=== PATIENT | male | born 1985 | race Two or more races ===

== ENCOUNTER 2020-08-17 06:11 | Inpatient (IN) | payer MEDICAID, OTHER ==
[~2020-08-17] VITALS: Ht 185.4 cm; Wt 97.8 kg
[2020-08-17] VITALS (9 sets, daily range): BP systolic 107–135; BP diastolic 57–81
[2020-08-17 07:17] LABS: Hematocrit 42.5 % (41.0-53.0); Hemoglobin 14.4 g/dL (13.5-17.5); Mean Corpuscular Hemoglobin 29.9 pg (28.0-32.0); Mean Corpuscular Hgb Conc. 33.8 g/dL (32.0-36.0); Mean Corpuscular Volume 88.6 fL (80.0-100.0); Platelet Count (auto) 424 10^3/uL (140-450); Red Cell Distribution Width 13.6 % (11.8-14.3); White Blood Cell 27.8 10^3/uL (4.4-10.8)
[2020-08-17 07:20] LABS: Basophils % (manual) 0 (0.0-2.0); Blast Cells 0; Eosinophils % (manual) 0 (0-7); Metamyelocytes % 0; Myelocytes % 0; Promyelocytes % 0; Reactive Lymphocytes 0
[2020-08-17] MEDS ORDERED: LORazepam 2MG/ML-1ML VIAL IV ONE (07:30)
[2020-08-17] MEDS ORDERED: SODIUM CHLORIDE 0.9% 1,000 ML IV ONE ×3 (07:30→13:00)
[2020-08-17 07:31] LABS: INR 1.18 (0.9-1.15); Partial Thromboplastin Time 30.3 sec (23.0-31.2)
[2020-08-17 07:32] LABS: Alanine Aminotransferase 25 U/L (16-61); Albumin 2.5 g/dL (3.4-5.0); Anion Gap 11 (5-15); Aspartate Aminotransferase 17 U/L (15-37); BUN/Creatinine Ratio 10.9; Blood Urea Nitrogen 11 mg/dL (7-18); Calcium 8.4 mg/dL (8.5-10.1); Carbon Dioxide 22 mmol/L (21-32); Chloride 94 mmol/L (98-107); GFR African American 108 mL/min; GFR Non-African American 89 mL/min; Glucose 115 mg/dL (74-106); Sodium 127 mmol/L (136-145)
[2020-08-17 07:37] LABS: Alkaline Phosphatase 113 U/L (45-117); Bilirubin, Total 0.7 mg/dL (0.2-1.0); Total Protein 7.8 g/dL (6.4-8.2)
[2020-08-17] MEDS ORDERED: CLINDAMYCIN 900MG IV 50 ML IV ONE (07:45)
[2020-08-17] MEDS ORDERED: cefTRIAXone 1GM/50ML D5W 50 ML IV ONE (07:45)
[2020-08-17] MEDS ORDERED: HYDROmorphone HCL 2 MG/ML VL IV ONE (10:00)
[2020-08-17] MEDS ORDERED: ONDANSETRON HCL 4 MG/2 ML VIAL IV ONE (10:00)
[2020-08-17 12:06] LABS: Band Neutrophils % (manual) 6; Lymphocytes % (manual) 5 (10.0-50.0); Monocytes % (manual) 9 (0-12)
[2020-08-17] MEDS ORDERED: ONDANSETRON HCL 4 MG/2 ML VIAL IV PRN (13:00)
[2020-08-17] MEDS ORDERED: MORPHINE SULF INJ 2 MG/ML SYRINGE 1ML IV PRN (13:00)
[2020-08-17] MEDS: SODIUM CHLORIDE 0.9% 1,000 ML IV SCH ×2 (13:00→16:05)
[2020-08-17] MEDS ORDERED: VANCOMYCIN PER PHARMACY 0 MG IV SCH (13:00)
[2020-08-17] MEDS ORDERED: NITROGLYCERIN 0.4 MG SL TAB SL PRN (13:00)
[2020-08-17] MEDS ORDERED: VANCOMYCIN 1GM/250ML 250 ML IV ONE (13:20)
[2020-08-17] MEDS ORDERED: PIPERACILLIN-TAZOB 3.375GM 100 ML IV SCH (14:30)
[2020-08-17] MEDS: ACETAMINOPHEN 500 MG TAB PO PRN (14:39)
--- NOTE | 2020-08-17 15:55 | NUR ---
Pt being admitted to ICU ADELIA HERRERA admitted to ICU via gurney on monitoring coordinator, and portable 02. Patient transferred to bed, connected to ICU monitoring and oxygen, and weighed by bedscale. Patient oriented to MACKENZIE EMLARA, primary RN, unit, room, bed, and unit policies regarding patient care and visiting hours. All questions and concerns addressed, patient verbalized understanding.
[2020-08-17] MEDS: PIPERACILLIN-TAZOB 3.375GM 100 ML IV SCH (16:04)
--- NOTE | 2020-08-17 19:15 | NUR ---
OPENING NOTE RECEIVED REPORT FROM GARY RN. PATIENT AOX4, FOLLOWING COMMANDS. LEFT CHEST DRESSING FOR PREVIOUS CHEST TUBE INCISION SITE. PARISH PRURIENT DRAINAGE. BILATERAL CHEST RISE AND FALL. ON 3L NC. ST 120'S BP 116/75. RIGHT FOREARM 18G TRANSFUSING MEDICATIONS. BED LOCKED AND IN LOWEST POSITION. ALL FALL AND SAFETY PRECAUTIONS IN PLACE. FOR MORE INFORMATIONS SEE INTERVENTIONS. FOR GTTS AND THEIR TITRATIONS SEE IV SPREAD SHEET.
--- NOTE | 2020-08-17 21:40 | NUR ---
PAGED HOSPITALIST PATIENT COMPLAINING OF CHEST TIGHTNESS, PAGED HOSPITALIST, RECEIVED ORDER
[2020-08-17] MEDS: LEVALBUTEROL HCL 1.25 MG/3 ML NEB NEB SCH (22:07)
[2020-08-17] MEDS: VANCOMYCIN 1GM/250ML 250 ML IV SCH (22:20)
--- NOTE | 2020-08-17 22:40 | NUR ---
MISBAH HOSPITALIST HR 140'S BP 138/98 RESP 37, SPO2 98% PATIENT BECOMING MORE LETHARGIC.
[2020-08-18] VITALS (25 sets, daily range): BP systolic 94–139; BP diastolic 52–84
[2020-08-18 00:12] LABS: Alcohol, Urine < 3.0 mg/dL (0-10); Amphetamine Screen, Urine POSITIVE (NEGATIVE); Barbiturate Scree,Urine NEGATIVE (NEGATIVE); Benzodiazephine Screen, Urine NEGATIVE (NEGATIVE); Cannabinoid Screen, Urine POSITIVE (NEGATIVE); Cocaine Screen, Urine NEGATIVE (NEGATIVE); Opiate Scree,Urine NEGATIVE (NEGATIVE); Phencyclidine Screen, Urine NEGATIVE (NEGATIVE)
[2020-08-18] MEDS: LORazepam 2MG/ML-1ML VIAL IV PRN ×2 (00:22→04:03)
[2020-08-18] MEDS: HYDROmorphone HCL 2 MG/ML VL IV PRN ×6 (00:23→20:09)
[2020-08-18] MEDS: PIPERACILLIN-TAZOB 3.375GM 100 ML IV SCH ×4 (00:23→23:49)
--- NOTE | 2020-08-18 02:08 | NUR ---
CRITICAL LAB PAGED HOSPITALIST FOR + BLOOD CULTURES
[2020-08-18] MEDS: SODIUM CHLORIDE 0.9% 1,000 ML IV SCH ×4 (02:10→22:20)
--- NOTE | 2020-08-18 02:10 | NUR ---
HOSPITALIST RETURNED CALL UPDATED ON PATIENT STATUS.
[2020-08-18 05:38] LABS: Albumin 1.8 g/dL (3.4-5.0); Calcium 7.4 mg/dL (8.5-10.1); Potassium 4.6 mmol/L (3.5-5.1)
[2020-08-18 05:48] LABS: BUN/Creatinine Ratio 15.2; Bilirubin, Total 0.5 mg/dL (0.2-1.0); Total Protein 6.3 g/dL (6.4-8.2)
[2020-08-18] MEDS: VANCOMYCIN 1GM/250ML 250 ML IV SCH ×3 (06:10→20:09)
[2020-08-18] MEDS: LEVALBUTEROL HCL 1.25 MG/3 ML NEB NEB SCH ×3 (07:37→18:17)
--- NOTE | 2020-08-18 11:00 | NUR ---
ECHO: building services technician at bedside.
--- NOTE | 2020-08-18 11:05 | NUR ---
AT BEDSIDE: Dr. Mcarthur at bedside, new orders received.
[2020-08-18] MEDS: Ensure HIGH Protein Chocolate 8oz Bottle PO SCH ×2 (12:00→18:00)
[2020-08-18] MEDS ORDERED: IOHEXOL 350 MG/ML 100ML IJ ONE (12:27)
[2020-08-18] MEDS: metroNIDAZOLE 500MG/100ML 100 ML IV SCH ×2 (15:00→21:49)
[2020-08-18] MEDS: FAMOTIDINE 20 MG TAB PO SCH (15:38)
[2020-08-18] MEDS: ENOXAPARIN SOD 40 MG/0.4 ML SYRINGE SC SCH (15:38)
--- NOTE | 2020-08-18 20:25 | NUR ---
TEMP 102.4 ORAL - STARTED COOLING MEASURES SHIVERING, HR 126, RR 32 TYLENOL, ICE PACKS TO BILATERAL AXILLA AND BEHIND NECK PATIENT REFUSING COOLING BLANKET.
[2020-08-18] MEDS: ACETAMINOPHEN 500 MG TAB PO PRN (20:50)
--- NOTE | 2020-08-18 20:55 | NUR ---
IV insertion IV access obtained, via clean sterile technique by inserting 20 gauge catheter at RIGHT FOREARM after 2 attempt(s). IV secured properly. No trauma to site. Patient tolerated well. IV INSERTED BY ADELIA CHAPARRO
--- NOTE | 2020-08-18 22:40 | NUR ---
PATIENT REFUSING COOLING MEASURES DOES NOT WANT ICE PACKS OR COOLING CLOTHS. EDUCATED ON HIS INFECTION, TEMPERATURE AND REASONS FOR COOLING.
--- NOTE | 2020-08-18 22:51 | NUR ---
CARES LIFE SIDE SURGICAL CHEST TUBE INCISION, IRRIGATED WITH NS, COVERED WITH PAD AND TAPED WITH STRETCH TAPE. FULL BED LINEN CHANGE, PATIENT WAS ABLE TO TRANSFER FROM BED TO CHAIR ON HIS OWN.
[2020-08-19] VITALS (13 sets, daily range): BP systolic 109–152; BP diastolic 65–83
[2020-08-19] MEDS: LEVALBUTEROL HCL 1.25 MG/3 ML NEB NEB SCH ×4 (00:23→18:36)
[2020-08-19] MEDS: VANCOMYCIN 1GM/250ML 250 ML IV SCH ×4 (03:39→20:22)
[2020-08-19] MEDS: HYDROmorphone HCL 2 MG/ML VL IV PRN ×4 (03:56→20:23)
[2020-08-19] MEDS: SODIUM CHLORIDE 0.9% 1,000 ML IV SCH ×2 (05:00→11:40)
[2020-08-19] MEDS: metroNIDAZOLE 500MG/100ML 100 ML IV SCH (05:32)
[2020-08-19] MEDS: Ensure HIGH Protein Chocolate 8oz Bottle PO SCH ×3 (08:00→18:00)
[2020-08-19] MEDS: FAMOTIDINE 20 MG TAB PO SCH (10:00)
[2020-08-19] MEDS: ENOXAPARIN SOD 40 MG/0.4 ML SYRINGE SC SCH (10:00)
[2020-08-19] MEDS: PIPERACILLIN-TAZOB 3.375GM 100 ML IV SCH ×2 (10:25→16:24)
[2020-08-19 10:38] LABS: Basophils # (auto) 0.1 10 ^3/uL (0-0.2); Basophils % (auto) 0.6 % (0.0-2.0); Eosinophils # (auto) 0.3 10 ^3/uL (0-0.8); Hematocrit 39.9 % (41.0-53.0); Hemoglobin 13.4 g/dL (13.5-17.5); Lymphocytes # (auto) 0.8 10 ^3/uL (0.4-5.4); Lymphocytes % (auto) 5.6 % (10.0-50.0); Mean Corpuscular Hemoglobin 30.2 pg (28.0-32.0); Mean Corpuscular Hgb Conc. 33.6 g/dL (32.0-36.0); Mean Corpuscular Volume 89.9 fL (80.0-100.0); Monocytes # (auto) 0.9 10 ^3/uL (0-1.3); Monocytes % (auto) 6.6 % (0.0-12.0); Neutrophils # (auto) 11.5 10 ^3/uL (1.6-8.6); Neutrophils % (auto) 85.2 % (37.0-80.0); Platelet Count (auto) 422 10^3/uL (140-450); Red Blood Cells 4.44 10^6/uL (4.5-5.90); Red Cell Distribution Width 14.1 % (11.8-14.3); White Blood Cell 13.5 10^3/uL (4.4-10.8)
[2020-08-19 11:13] LABS: Albumin 1.8 g/dL (3.4-5.0); Calcium 8.1 mg/dL (8.5-10.1); Potassium 4.1 mmol/L (3.5-5.1)
[2020-08-19 11:17] LABS: BUN/Creatinine Ratio 12.8; Bilirubin, Total 0.4 mg/dL (0.2-1.0); Total Protein 6.4 g/dL (6.4-8.2)
--- NOTE | 2020-08-19 13:10 | NUR ---
OR AT BEDSIDE: OR crew at bedside for bronchoscopy, Dr. Iglesias in unit.
[2020-08-19] MEDS ORDERED: ACETYLCYSTEINE 10 %(100MG/ML) SOL 4ML NEB ONE (13:15)
[2020-08-19] MEDS ORDERED: SODIUM CHLORIDE LOCK 10 ML ONE (13:19)
[2020-08-19] MEDS ORDERED: LIDOCAINE 2%HCL (LOCAL ANESTH.) INJ 20ML MDV ONE (13:19)
[2020-08-19] MEDS ORDERED: EPINEPHrine HCL 1 MG/1 ML AMP ONE (13:19)
[2020-08-19] MEDS ORDERED: GLYCOPYRROLATE 0.2 MG/ML 1ML VIAL ONE (13:20)
[2020-08-19] MEDS ORDERED: LIDOCAINE HCL 2% TOP JELLY 5ML TOP ONE (13:20)
--- NOTE | 2020-08-19 13:50 | NUR ---
Respiratory note: BRONCHOSCOPY PREFORMED BY DR TERRY WITH BRADY RN, AND THIS RT AT BEDSIDE WITHOUT INCIDENT. BRONCHOSCOPY POSTPONED TO FURTHER DATE DUE TO PT BEING UNABLE TO PROPERLY BE SEDATED. NO RESPIRATORY DISTRESS NOTED. WILL CONTINUE TO MONITOR PT.
[2020-08-19] MEDS: fentaNYL CITRATE 100 MCG/2 ML VL ONE ×3 (14:00→14:07)
[2020-08-19] MEDS: MIDAZOLAM HCL 5 MG/ML-1ML VIAL ONE ×3 (14:00→14:07)
[2020-08-19] MEDS ORDERED: LIDOCAINE 1% (LOCAL ANESTH.) PF 5ml SDV ID ONE (15:30)
--- NOTE | 2020-08-19 15:36 | NUR ---
PICC line placement Patient educated on need for PICC line placement. All risks and benefits explained and all questions and concerns addressed prior to procedure. Noted past medical history and allergies with no contraindications. INR and Plt counts within acceptable range. 5 fr PICC line inserted via RIGHT BASILIC vein using [employer] US and Tip Location System. Sterile technique with maximum barrier precautions utilized. Blood return obtained from each of THE TWO lumens and each flushed easily with NS using proper technique. PICC secured with Stat-lock; biodisc and occlusive dressing applied. Stat portable chest x-ray obtained for PICC tip placement. *Baseline Arm Circumference 32 CM INTERNAL LENGTH 42 CM EXTERNAL LENGTH 0 CM PICC lot # [id number] Addendum: 08/20/20 at 0817 by MOHAMUD WILLSON RN 08/19/2020 @1635 PULLED BACK PICC LINE BACK VIA STERILE TECHNIQUE 2 CM CXR STATED PICC WAS IN RIGHT ATRIUM. NOTIFIED PRIMARY KRYSTA NESS. ORDERED A NEW STAT CXR TO CONFIRM PLACEMENT. INTERNAL LENGTH 40 CM EXTERNAL LENGTH 2 CM ARM CIRCUMFERENCE 32 CM
--- NOTE | 2020-08-19 17:25 | NUR ---
BLOOD PRESSURE CUFF; Patient non-compliant with leaving blood pressure cuff in place, discussed with him need to monitor blood pressure frequently in the ICU. Patient verbalizes understanding but continues to remove blood pressure cuff.
--- NOTE | 2020-08-19 17:30 | NUR ---
OK to use PICC line Xray completed. OK to use PICC line. PRIMARY RN THI NOTIFIED.
--- NOTE | 2020-08-19 19:34 | NUR ---
PATIENT KEEPS REMOVING BLOOD PRESSURE COUGH PATIENT STATES HE DOES NOT WANT BP TAKEN THAT FREQUENTLY IT MAKES HIM "UNCOMFORTABLE". EDUCATED ON THE REASONS FOR TAKING BP, PATIENT VERBALIZED UNDERSTANDING. PATIENT REFUSED ALTERNATIVES SUCH PUTTING BP COUGH ONLY WHEN BP NEEDS TO BE TAKEN HOURLY OR CHANGING THE SITE OF BP COUGH. CHANGED BP CHECKS FROM EVERY HOUR TO EVERY TWO HOURS, PATIENT STATED HE WILL TRY NOT TO REMOVE BP COUGH.
--- NOTE | 2020-08-19 19:55 | NUR ---
IV removal 18G IV on right forearm DC'd with clean sterile technique, catheter fully intact. Pressure dressing applied to site. IV site appear intact, no signs of irritation or redness. Reason for removal: IV is leaking. Patient tolerated well.
--- NOTE | 2020-08-19 21:27 | NUR ---
Spoke with Archana (mother) updated on patients status and poc verbalized understanding Archana stated she well call in a morning around 1030
--- NOTE | 2020-08-19 21:35 | NUR ---
SENT URINE SAMPLE FOR URINALYSIS VIA BULLET
[2020-08-19] MEDS: SODIUM CHLOR 0.9% PF (SALINE LOCK) 10ML VIAL/SYR IV SCH (21:56)
[2020-08-19 22:36] LABS: Urine Bacteria NONE SEEN /hpf (None Seen); Urine Blood Negative /uL (Negative); Urine WBC 4 /hpf (0 - 3)
--- NOTE | 2020-08-19 22:50 | NUR ---
FILED GIFT CARD AT THE END OF PATIENTS CHART PATIENT WANTS HIS [employer] GIFT CARD TO BE TOSSED. CONSULTED WITH CHARGE NURSE (LAURENT) AT THE MOMENT FILED THE CARD AT THE END OF PATIENTS CHART IN THE BIOHAZARD BAG.
--- NOTE | 2020-08-19 23:04 | NUR ---
PATIENT REQUESTING HIS PHONE TO BE CHARGED PATIENT DOES NOT HAVE ADVANCED PRACTICE NURSE ON HIM. PATIENT IS OKAY FOR CROP OR GRAIN FARMER (HANNAH) TO TAKE HIS SMART PHONE TO BE CHARGED IN HIS OFFICE. SMART PHONE WAS GIVEN TO HANNAH (CROP OR GRAIN FARMER)
[2020-08-20] VITALS (9 sets, daily range): BP systolic 107–128; BP diastolic 53–70
[2020-08-20] MEDS: ACETAMINOPHEN 500 MG TAB PO PRN (00:30)
--- NOTE | 2020-08-20 00:30 | NUR ---
TEMP 101.2 AXILLARY COOLING MEASURES PATIENT REFUSING ICE PACKS, PATIENT STATES "IF YOU BRING ICE I WILL THROW IT AT YOU" TURNED DOWN ROOM TEMPERATURE ADMINISTERED TYLENOL PO WITH COLD ICE WATER TO DRINK. EDUCATED PATIENT ON THE IMPORTANCE OF DECREASING BODY TEMPERATURE. VERBALIZED UNDERSTANDING, CONTINUES TO REFUSING OTHER MEANS OF COOLING MEASURES INCLUDING FAN AND WET CLOTHS.
[2020-08-20] MEDS: LEVALBUTEROL HCL 1.25 MG/3 ML NEB NEB SCH ×4 (00:36→19:13)
[2020-08-20] MEDS: SODIUM CHLORIDE 0.9% 1,000 ML IV SCH ×4 (01:00→17:34)
[2020-08-20] MEDS: PIPERACILLIN-TAZOB 3.375GM 100 ML IV SCH ×3 (01:06→18:43)
--- NOTE | 2020-08-20 01:20 | NUR ---
PATIENT RECEIVED HIS SMART PHONE BACK PATIENT REQUESTING HIS PHONE BACK. HANNAH (GERIATRIC SOCIAL WORK PROFESSOR BROUGHT HIS PHONE) SMART PHONE WAS GIVEN DIRECTLY TO PATIENT.
[2020-08-20] MEDS: VANCOMYCIN 1GM/250ML 250 ML IV SCH ×2 (01:21→08:03)
--- NOTE | 2020-08-20 04:29 | NUR ---
SENT BLOOD WITH ANGY PEREZ BULLET IS DOWN SENT BLOOD WITH ANGY US
[2020-08-20] MEDS: HYDROmorphone HCL 2 MG/ML VL IV PRN ×5 (04:38→22:19)
[2020-08-20 04:43] LABS: Eosinophils # (auto) 0.4 10 ^3/uL (0-0.8); Hemoglobin 12.9 g/dL (13.5-17.5); Lymphocytes # (auto) 1.1 10 ^3/uL (0.4-5.4); Lymphocytes % (auto) 8.7 % (10.0-50.0); Red Blood Cells 4.25 10^6/uL (4.5-5.90); White Blood Cell 12.5 10^3/uL (4.4-10.8)
[2020-08-20 04:45] LABS: Basophils # (auto) 0.1 10 ^3/uL (0-0.2); Basophils % (auto) 1.1 % (0.0-2.0); Eosinophils % (auto) 2.8 % (0.0-7.0); Hematocrit 37.8 % (41.0-53.0); Mean Corpuscular Hemoglobin 30.3 pg (28.0-32.0); Mean Corpuscular Hgb Conc. 34.1 g/dL (32.0-36.0); Monocytes # (auto) 0.9 10 ^3/uL (0-1.3); Neutrophils # (auto) 10.1 10 ^3/uL (1.6-8.6); Neutrophils % (auto) 80.4 % (37.0-80.0); Nucleated Red Blood Cells % 0.2 %; Platelet Count (auto) 463 10^3/uL (140-450); Red Cell Distribution Width 13.7 % (11.8-14.3)
[2020-08-20 05:02] LABS: Albumin 1.8 g/dL (3.4-5.0); Calcium 7.6 mg/dL (8.5-10.1); Potassium 3.7 mmol/L (3.5-5.1)
[2020-08-20 05:05] LABS: BUN/Creatinine Ratio 9.7; Bilirubin, Total 0.3 mg/dL (0.2-1.0)
[2020-08-20] MEDS: Ensure HIGH Protein Chocolate 8oz Bottle PO SCH ×3 (08:00→18:43)
[2020-08-20] MEDS ORDERED: LIDOCAINE 2%HCL (LOCAL ANESTH.) INJ 20ML MDV ONE (08:42)
[2020-08-20] MEDS ORDERED: SODIUM CHLORIDE LOCK 0 ML ONE (08:42)
[2020-08-20] MEDS ORDERED: EPINEPHrine HCL 1 MG/1 ML AMP ONE (08:43)
[2020-08-20] MEDS ORDERED: LIDOCAINE HCL 2% TOP JELLY 5ML TOP ONE (08:43)
[2020-08-20] MEDS: ENOXAPARIN SOD 40 MG/0.4 ML SYRINGE SC SCH (10:00)
[2020-08-20] MEDS: FAMOTIDINE 20 MG TAB PO SCH (10:00)
[2020-08-20] MEDS ORDERED: LIDOCAINE HCL 2 % INJ 2ML MPF NEB ONE (10:00)
[2020-08-20] MEDS ORDERED: MEPERIDINE HCL (25 MG/ML) 1ML VIAL ONE (10:12)
[2020-08-20] MEDS ORDERED: fentaNYL CITRATE 100 MCG/2 ML VL ONE (10:12)
[2020-08-20] MEDS ORDERED: MIDAZOLAM HCL 1MG/1ML-2 ML VIAL ONE (10:12)
--- NOTE | 2020-08-20 10:25 | NUR ---
TO OR: Consents obatined, per patient he does not want for his mother to receive any information regarding his condition if she were to call. Provided name for friend Johnson [phone], to be contacted for any further required consents. Patient to OR on portable monitor and O2.
[2020-08-20] MEDS ORDERED: DexAMETHasone SOD PHOS 10MG/1ML VIAL INJ ONE (11:32)
[2020-08-20] MEDS ORDERED: PROPOFOL 10 MG/ML 20 ML IV ONE (11:38)
--- NOTE | 2020-08-20 11:48 | NUR ---
Nutrition Assessment Notes Please refer to link for full assessment notes. Est Energy needs: 3715-9567 kcals (17-20 kcal/kgBW) Est Protein needs: 83-104 gms/day (0.8-1.0 gm/kgBW) Will continue to monitor and reassess prn. Addendum: 08/20/20 at [address] Amended: Links added.
[2020-08-20] MEDS ORDERED: ONDANSETRON HCL 4 MG/2 ML VIAL IV PRN (12:15)
[2020-08-20] MEDS ORDERED: LABETALOL HCL 5 MG/ML 4ML SYRINGE IV PRN (12:15)
[2020-08-20] MEDS ORDERED: HYDROmorphone HCL 2 MG/ML VL IV PRN (12:15)
[2020-08-20] MEDS ORDERED: ePHEDrine SULFATE 50 MG/ML AMP IV PRN (12:15)
[2020-08-20] MEDS ORDERED: MIDAZOLAM HCL 1MG/1ML-2 ML VIAL IV PRN (12:15)
[2020-08-20] MEDS ORDERED: MORPHINE SULF INJ 2 MG/ML SYRINGE 1ML IV PRN (12:30)
--- NOTE | 2020-08-20 12:50 | NUR ---
RETURNED FROM OR: Patient returned from OR, tolerated procedure well. Meal tray provided.
[2020-08-20] MEDS: SODIUM CHLOR 0.9% PF (SALINE LOCK) 10ML VIAL/SYR IV SCH ×2 (13:50→22:06)
[2020-08-20] MEDS: LINEZOLID 600MG/300ML 300 ML IV SCH ×2 (13:58→22:06)
--- NOTE | 2020-08-20 14:00 | NUR ---
BLOOD PRESSURE MONITORING; Patient non-compliant with blood pressure monitoring despite education on need for monitoring of blood pressure hourly while in the ICU.
[2020-08-20] MEDS: CLINDAMYCIN 600MG IV 50 ML IV SCH ×2 (16:00→22:06)
[2020-08-20 17:20] LABS: INR 1.13 (0.9-1.15); Partial Thromboplastin Time 27.9 sec (23.0-31.2)
--- NOTE | 2020-08-20 20:15 | NUR ---
SET UP PASSWORD PATIENT STATES THAT HE DOES NOT WANT INFORMATION GIVEN TO ANYONE INCLUDING HIS MOM, HE STATED IF THEY WANT INFORMATION THEY CAN CALL ME DIRECTLY ON MY CELL PHONE. HE STATED THAT ONLY HIS FRIEND (MARCELLA) CAN MAKE DECISIONS AND SIGN CONSENTS.
--- NOTE | 2020-08-20 20:20 | NUR ---
PAGED RT PER RT TO PAGE HER AFTER PATIENT DONE EATING SO THAT HE CAN GET BREATHING TREATMENT
--- NOTE | 2020-08-20 21:00 | NUR ---
OPENING NOTES PATIENT RESTING IN BED WATCHING TV AND WORKING ON HIS CELL PHONE. NO SIGN OR SHORTNESS OF BREATH OR DISTRESS, CLEAR LUNG SOUNDS ON 1L NC. TEMP 99.4 AX, PATIENT REFUSING COOLING MEASURES AT THIS TIME. PATIENT IS AWARE OF TOMORROWS PROCEDURE, WAITING TO TALK TO MD BEFORE SIGNING CONSENT, AOX4. REPORTS TOLERABLE PAIN AT THIS TIME. LEFT SIDE INCISION IS DRAINING PURULENT DRAINING FLUID, CLEANED WOUND WITH NS AND GAUZE, PLACED NEW GAUZE AND COVERED WITH DECADERM.
[2020-08-21] VITALS (36 sets, daily range): BP systolic 120–161; BP diastolic 64–111
[2020-08-21] MEDS: SODIUM CHLORIDE 0.9% 1,000 ML IV SCH ×5 (00:23→23:59)
[2020-08-21] MEDS: LEVALBUTEROL HCL 1.25 MG/3 ML NEB NEB SCH ×4 (00:23→18:14)
--- NOTE | 2020-08-21 00:30 | NUR ---
PATIENT OUT OF BED - CARES PATIENT WAS ABLE TO GIVE HIMSELF BATH USING WET CLOTHS. PARTIAL BED LINEN CHANGE PER PATIENT REQUEST. PATIENT RESTING IN BED, ON HIS PHONE. NO SIGN OF SOB OR DISTRESS. REPORTS TOLERABLE PAIN, ABLE TO MANAGE PAIN WITHOUT MEDICATIONS.
[2020-08-21] MEDS: PIPERACILLIN-TAZOB 3.375GM 100 ML IV SCH ×3 (01:00→17:12)
[2020-08-21 05:10] LABS: Basophils # (auto) 0.1 10 ^3/uL (0-0.2); Basophils % (auto) 0.6 % (0.0-2.0); Eosinophils # (auto) 0 10 ^3/uL (0-0.8); Eosinophils % (auto) 0.2 % (0.0-7.0); Hematocrit 37.4 % (41.0-53.0); Hemoglobin 12.4 g/dL (13.5-17.5); Lymphocytes # (auto) 0.9 10 ^3/uL (0.4-5.4); Lymphocytes % (auto) 7.2 % (10.0-50.0); Mean Corpuscular Hgb Conc. 33.2 g/dL (32.0-36.0); Mean Corpuscular Volume 90.3 fL (80.0-100.0); Monocytes # (auto) 0.8 10 ^3/uL (0-1.3); Monocytes % (auto) 6.8 % (0.0-12.0); Neutrophils # (auto) 10.2 10 ^3/uL (1.6-8.6); Neutrophils % (auto) 85.2 % (37.0-80.0); Nucleated Red Blood Cells % 0.2 %; Platelet Count (auto) 410 10^3/uL (140-450); Red Blood Cells 4.14 10^6/uL (4.5-5.90); Red Cell Distribution Width 13.9 % (11.8-14.3); White Blood Cell 11.9 10^3/uL (4.4-10.8)
[2020-08-21 05:33] LABS: Potassium 4.5 mmol/L (3.5-5.1)
[2020-08-21 05:40] LABS: Albumin 1.9 g/dL (3.4-5.0); BUN/Creatinine Ratio 20.7; Bilirubin, Total 0.2 mg/dL (0.2-1.0); Calcium 7.8 mg/dL (8.5-10.1); Total Protein 6.4 g/dL (6.4-8.2)
[2020-08-21] MEDS: CLINDAMYCIN 600MG IV 50 ML IV SCH ×3 (05:57→21:14)
[2020-08-21] MEDS: Ensure HIGH Protein Chocolate 8oz Bottle PO SCH ×2 (07:38→11:28)
[2020-08-21] MEDS: HYDROcodone-ACET 5/325MG TAB PO PRN ×2 (08:23→17:01)
--- NOTE | 2020-08-21 09:42 | NUR ---
DR BARRIOS AT BEDSIDE AT 0930, AWARE PATIENT WILL GO TO OR WITH DR MOSS TODAY, DR MOSS CAME TO BEDSIDE AT 0928 AND SPOKE WITH PATIENT REGARDING THORACOSCOPY WITH POSSIBLE THORACOTOMY WITH POSSIBLE CHEST TUBE PLACEMENT. CONSENT SIGNED BY DR MOSS AND PATIENT/RN.
[2020-08-21] MEDS: ENOXAPARIN SOD 40 MG/0.4 ML SYRINGE SC SCH (10:00)
[2020-08-21] MEDS: FAMOTIDINE 20 MG TAB PO SCH (10:00)
--- NOTE | 2020-08-21 10:19 | NUR ---
MOTHER "SHELLI" ATTEMPTED TO CALL AND GET INFORMATION DOES NOT HAVE PASSWORD, PER PATIENT HE DOES NOT WANT INFORMATION TO BE GIVEN. NO INFORMATION GIVEN.
[2020-08-21] MEDS: LINEZOLID 600MG/300ML 300 ML IV SCH ×2 (10:25→21:14)
[2020-08-21] MEDS: SODIUM CHLOR 0.9% PF (SALINE LOCK) 10ML VIAL/SYR IV SCH ×2 (10:25→21:14)
[2020-08-21] MEDS: HYDROmorphone HCL 2 MG/ML VL IV PRN ×3 (10:36→21:32)
--- NOTE | 2020-08-21 11:15 | NUR ---
EX BLAIR CALLED, HAD PASSWORD AND OK TO GIVE INFO PER PATIENT. UPDATED ON POC ALL QUESTIONS ADDRESSED.
--- NOTE | 2020-08-21 12:21 | NUR ---
TRANSFERRED TO OR IN STABLE CONDITION ON PORTABLE JEWEL STAKER, EMERGENCY MEDICAL TECHNICIAN BASIC LYUDMILA SPOKE WITH PATIENT OVER PORTABLE PHONE PRIOR TO OR TRANSFER
[2020-08-21] MEDS ORDERED: HYDROmorphone HCL 2 MG/ML VL ONE (12:26)
[2020-08-21] MEDS ORDERED: MIDAZOLAM HCL 1MG/1ML-2 ML VIAL ONE (12:26)
[2020-08-21] MEDS ORDERED: fentaNYL CITRATE 100 MCG/2 ML VL ONE (12:26)
[2020-08-21] MEDS ORDERED: ONDANSETRON HCL 4 MG/2 ML VIAL ONE (12:27)
[2020-08-21] MEDS ORDERED: SODIUM CHLORIDE LOCK 10 ML ONE (12:27)
[2020-08-21] MEDS ORDERED: PROPOFOL 10 MG/ML 20 ML IV ONE (12:27)
[2020-08-21] MEDS ORDERED: ROCURONIUM 10MG/ML 10ML VIAL IV ONE (12:27)
--- NOTE | 2020-08-21 12:30 | NUR ---
Respiratory note: SCHEDULED MED NEB TX NOT GIVEN. PT AT A PROCEDURE.
--- NOTE | 2020-08-21 13:54 | NUR ---
assessment Patient is a 34 year old male who is alert and oriented. Patients cognitive abilities are intact. Prior to admission patient lived home alone and functioned independently. Patient informed me he is able to care for his own ADLs. Per patient he will return home to his prior living arrangements post discharge and family will transport him home. Patient informed me he does not want to list an emergency contact. Patient has refused resources for ETOH, meth and marijuana use. Patient informed me he doesn't need anything. I informed patient he could request for me to come back and see him if he changes his mind. Patient stated that he does not need anything and he will be fine on discharge. Patient is refusing social service at this time. I informed patient he has a right to speak to a high school social studies teacher regarding all care. I informed patient he has a right to participate in any and all discharge planning. Patient does not have a POA and advanced directive. I have offered patient information on POA and advanced directives. I informed the patient the advantages and benefits of having an Advanced Directive. Patient verbalized understanding and agreed to discharge plan. Addendum: 08/21/20 at 1357 by Pati QUESADA Amended: Links added.
[2020-08-21] MEDS ORDERED: NEOSTIGMINE 1 MG/ML INJ (10mg/10ML VIAL) ONE (14:08)
[2020-08-21] MEDS ORDERED: GLYCOPYRROLATE 0.2 MG/ML 1ML VIAL ONE (14:08)
[2020-08-21] MEDS ORDERED: MEPERIDINE HCL (25 MG/ML) 1ML VIAL ONE (14:35)
[2020-08-21] MEDS ORDERED: HYDROmorphone HCL 2 MG/ML VL IV PRN (15:15)
[2020-08-21] MEDS ORDERED: MORPHINE SULFATE 4 MG/ML SYR/VIAL IV PRN (15:15)
[2020-08-21] MEDS ORDERED: METOCLOPRAMIDE HCL 5MG/ml INJ 2ml VIAL IV PRN (15:15)
[2020-08-21] MEDS ORDERED: ONDANSETRON HCL 4 MG/2 ML VIAL IV ONE (15:30)
[2020-08-21] MEDS ORDERED: HYDROmorphone HCL 2 MG/ML VL IV ONE (15:30)
--- NOTE | 2020-08-21 17:20 | NUR ---
ARRIVED BACK FROM OR [id number]. VS STABLE EXCEPT TEMP 95.9 AXILLARY WARM BLANKETS AND HEAT LAMP ON BUT PATIENT REFUSED HEAT LAMP AT THIS TIME DUE TO THE. 300 ML SANGUINOUS DRAINAGE MARKED ON DRAINAGE SYSTEM FROM LEFT LATERAL CHEST TUBE WHICH WAS HOOKED TO 20 CM CONTINUOUS SUCTION. PATIENT STATES HE HAS 10/10 PAIN WITH DILAUDID AND DEMEROL GIVEN IN PACU. PATIENT AWARE DILAUDID NOT DUE YET. NORCO GIVEN ORDERED. RIGHT RADIAL ALEXEI PRESENT AND INTACT/PATENT ZEROED FLUSHED AND LEVELED. CALL LIGHT IN REACH. Addendum: 08/21/20 at 1927 by Phillip Ortiz RN LEFT LATERAL CHEST TUBE INSERTION SITE DSG WITH GAUZE AND TEGADERM CDI AT TIME OF ARRIVAL AND AT THIS TIME Addendum: 08/21/20 at 1950 by Phillip Ortiz RN LEFT UPPER LATERAL/POSTERIOR S/P INCISION WITH STERISTRIPS CDI UPON ARRIVAL FROM OR
--- NOTE | 2020-08-21 17:30 | NUR ---
REFUSING WARM BLANKETS DUE TO BEING "TOO HEAVY" PATIENT ENCOURAGED TO LEAVE WARM BLANKETS ON AND EDUCATED ON NORMAL TEMP AND POST OP COMPLICATIONS OF LOW TEMP. TEMP REASSESSED BECAUSE PATIENT STATED "I FEEL WARM NOW" TEMP 95.8 F AXILLARY. RELIGIOUS EDUCATION TEACHER FINDING RADHA HUGGER MACHINE FOR RN AND WILL ENCOURAGE USE DUE TO LIGHTWEIGHT OF THE RADHA HUGGER BLANKET.
--- NOTE | 2020-08-21 17:50 | NUR ---
RADHA REDDING IN PLACE, PATIENT AGREEING TO KEEP IT ON AT THIS TIME
--- NOTE | 2020-08-21 18:30 | NUR ---
RADHA REDDING ON AND TEMP 96.7
--- NOTE | 2020-08-21 22:26 | NUR ---
Patient refusing Bear Hugger at this time, axillary temp 96.5. Warm blankets applied at this time.
[2020-08-22] VITALS (50 sets, daily range): BP systolic 108–163; BP diastolic 66–106
[2020-08-22] MEDS: LEVALBUTEROL HCL 1.25 MG/3 ML NEB NEB SCH ×5 (00:11→23:31)
[2020-08-22] MEDS: HYDROmorphone HCL 2 MG/ML VL IV PRN ×7 (00:32→23:04)
[2020-08-22] MEDS: PIPERACILLIN-TAZOB 3.375GM 100 ML IV SCH ×3 (01:03→16:37)
[2020-08-22 03:34] LABS: Basophils # (auto) 0.1 10 ^3/uL (0-0.2); Basophils % (auto) 0.7 % (0.0-2.0); Eosinophils # (auto) 0.1 10 ^3/uL (0-0.8); Nucleated Red Blood Cells % 0.1 %
[2020-08-22 03:36] LABS: Eosinophils % (auto) 0.4 % (0.0-7.0); Hematocrit 37.6 % (41.0-53.0); Lymphocytes # (auto) 1.3 10 ^3/uL (0.4-5.4); Lymphocytes % (auto) 9.9 % (10.0-50.0); Mean Corpuscular Hemoglobin 28.9 pg (28.0-32.0); Mean Corpuscular Hgb Conc. 31.9 g/dL (32.0-36.0); Mean Corpuscular Volume 90.8 fL (80.0-100.0); Monocytes # (auto) 0.9 10 ^3/uL (0-1.3); Monocytes % (auto) 6.6 % (0.0-12.0); Neutrophils % (auto) 82.4 % (37.0-80.0); Platelet Count (auto) 639 10^3/uL (140-450); Red Blood Cells 4.14 10^6/uL (4.5-5.90); Red Cell Distribution Width 14.1 % (11.8-14.3); White Blood Cell 13.3 10^3/uL (4.4-10.8)
[2020-08-22 03:54] LABS: Potassium 4.2 mmol/L (3.5-5.1)
[2020-08-22 04:00] LABS: BUN/Creatinine Ratio 16.4; Bilirubin, Total 0.3 mg/dL (0.2-1.0); Total Protein 6.2 g/dL (6.4-8.2)
[2020-08-22] MEDS: HYDROcodone-ACET 5/325MG TAB PO PRN ×2 (05:53→18:41)
[2020-08-22] MEDS: CLINDAMYCIN 600MG IV 50 ML IV SCH (06:02)
[2020-08-22] MEDS: SODIUM CHLORIDE 0.9% 1,000 ML IV SCH ×3 (06:35→19:40)
--- NOTE | 2020-08-22 08:30 | NUR ---
Woke the patient up for his breakfast, so that his food wouldn't be cold or him complaining the food was just placed at bedside and no one woke him up to eat, and now it is cold. The patient's response was "why the fuck you wake me up to eat this shit?"
[2020-08-22] MEDS: LINEZOLID 600MG/300ML 300 ML IV SCH ×2 (09:37→21:48)
[2020-08-22] MEDS: FAMOTIDINE 20 MG TAB PO SCH (09:37)
[2020-08-22] MEDS: SODIUM CHLOR 0.9% PF (SALINE LOCK) 10ML VIAL/SYR IV SCH ×2 (09:37→21:48)
[2020-08-22] MEDS: ENOXAPARIN SOD 40 MG/0.4 ML SYRINGE SC SCH (09:37)
--- NOTE | 2020-08-22 09:52 | NUR ---
Dr. Iglesias at bedside.
[2020-08-22] MEDS ORDERED: HYDROmorphone HCL 2 MG/ML VL IV ONE (10:00)
--- NOTE | 2020-08-22 11:35 | NUR ---
SBAR report given to KRYSTA Cano.
--- NOTE | 2020-08-22 11:58 | NUR ---
Downgrade ICU downgade after SBAR received. Patient awake, alert, and oriented X4. Patient currently in pain, VSS. Will medication patient and cont to monitor. Chest tube in place, no bubbling noted at this time.
--- NOTE | 2020-08-22 12:03 | NUR ---
Patient transported to telemetry room 282 with all personal belongings. No distress noted at time of departure.
--- NOTE | 2020-08-22 19:13 | NUR ---
Endorsed care Endorsed care to night KRYSTA Garcia.
--- NOTE | 2020-08-22 19:25 | NUR ---
Opening Shift Note Assumed care of patient, awake and alert. No S/S of distress/SOB. Reporting pain level of 10/10 at chest tube insertion site, will medicate PRN as prescribed. Safety measures in place, bed in lowest locked position, bed rails raised, call light within reach. Chest tube draining. Right upper arm PICC flushed and connected to fluids. Instructed on POC and to call for assist PRN, will continue to monitor for changes Q1hr and PRN.
[2020-08-23] MEDS: PIPERACILLIN-TAZOB 3.375GM 100 ML IV SCH ×3 (01:13→17:22)
[2020-08-23] MEDS: HYDROmorphone HCL 2 MG/ML VL IV PRN ×7 (02:13→23:34)
[2020-08-23] MEDS: SODIUM CHLORIDE 0.9% 1,000 ML IV SCH ×4 (02:24→21:42)
[2020-08-23 05:00] VITALS: BP 148/86
[2020-08-23 06:43] LABS: Eosinophils # (auto) 0.1 10 ^3/uL (0-0.8); Monocytes # (auto) 0.9 10 ^3/uL (0-1.3); Neutrophils # (auto) 8.1 10 ^3/uL (1.6-8.6)
[2020-08-23 06:45] LABS: Basophils # (auto) 0 10 ^3/uL (0-0.2); Basophils % (auto) 0.4 % (0.0-2.0); Eosinophils % (auto) 1.2 % (0.0-7.0); Hematocrit 39.4 % (41.0-53.0); Hemoglobin 13.4 g/dL (13.5-17.5); Lymphocytes # (auto) 1.3 10 ^3/uL (0.4-5.4); Lymphocytes % (auto) 12.3 % (10.0-50.0); Mean Corpuscular Hemoglobin 30.5 pg (28.0-32.0); Mean Corpuscular Volume 89.6 fL (80.0-100.0); Monocytes % (auto) 8.8 % (0.0-12.0); Neutrophils % (auto) 77.3 % (37.0-80.0); Platelet Count (auto) 731 10^3/uL (140-450); White Blood Cell 10.4 10^3/uL (4.4-10.8)
[2020-08-23] MEDS: LEVALBUTEROL HCL 1.25 MG/3 ML NEB NEB SCH ×4 (06:49→23:59)
[2020-08-23 07:10] LABS: Potassium 4.2 mmol/L (3.5-5.1)
[2020-08-23 07:20] LABS: BUN/Creatinine Ratio 9.9; Calcium 8.2 mg/dL (8.5-10.1)
--- NOTE | 2020-08-23 08:00 | NUR ---
Opening Shift Note Assumed care of patient, awake and alert. No S/S of distress/SOB. Chest tube draining at this time. Patient complaining of pain at this time, will medicate accordingly. Patient also stating, he does not want to be bothered today as he did not get any sleep last night due to "opening and slamming doors and a lot of people walking in last night just to bug me, I didn't get any sleep." This nurse notified patient she would try to not make too much noise when in the room for medications and hourly rounding so that he can get some rest. Patient instructed on POC and to call for assist PRN, will continue to monitor for changes Q1hr and PRN.
[2020-08-23 09:00] VITALS: BP 153/85
[2020-08-23] MEDS: SODIUM CHLOR 0.9% PF (SALINE LOCK) 10ML VIAL/SYR IV SCH ×2 (10:24→21:41)
[2020-08-23] MEDS: LINEZOLID 600MG/300ML 300 ML IV SCH ×2 (10:24→21:42)
[2020-08-23] MEDS: ENOXAPARIN SOD 40 MG/0.4 ML SYRINGE SC SCH (10:25)
[2020-08-23] MEDS: FAMOTIDINE 20 MG TAB PO SCH (10:25)
[2020-08-23 13:00] VITALS: BP 139/83
--- NOTE | 2020-08-23 14:50 | NUR ---
Nutrition Followup Notes Pt wt is 103.9 kg Pt was awake when rounded this morning. Pt is with a Regular diet, appetite is improved, fair aeb ave 69% PO intake x4 meals per RN doc. Est Energy needs: 2364-4351 kcals (17-20 kcal/kgBW) Est Protein needs: 83-104 gms/day (0.8-1.0 gm/kgBW) Will continue to monitor and reassess prn. LABS: CA 8.2 L, ALB 2.0 L GI: Pt had 1 BM on 08/20 per RN doc BS: 16 mod risk. Refer to Wound Assessment report for further details. PES: 1) Inadequate oral intake r/t pt with a fair appetite aeb 50% PO intake over 3 meals 2) Altered nutrition related lab values r/t current medical condition aeb hyperglycemia, hypocalcemia, hypoalbuminemia Comments Will continue to monitor PO status, skin status, pertinent labs and weight trends. Will f/u in 3-5 days 1) Continue to closely monitor pt PO intake to meet at least 75% of meals 2) If albumin continues trending down, consider Prostat 1 pkt BID 3) Continue current plan of care
[2020-08-23 17:00] VITALS: BP 150/78
--- NOTE | 2020-08-23 19:17 | NUR ---
Endorsed care to night RN Radha. Patient resting in bed, no distress or sob noted at this time.
--- NOTE | 2020-08-23 20:00 | NUR ---
Opening Shift Note Assumed care of patient, awake and alert. No S/S of distress/SOB. Pt complaining of pain 10/10 at chest tube insertion site, will medicate as prescribed. Safety measures in place, bed in lowest locked position, bed rails raised x2, call light within reach. All questions and concerns addressed at this time. Instructed on POC and to call for assist PRN, will continue to monitor for changes Q1hr and PRN.
[2020-08-23 21:00] VITALS: BP 123/75
[2020-08-23] MEDS: CLINDAMYCIN 300MG IV 50 ML IV SCH (21:41)
[2020-08-24] MEDS: PIPERACILLIN-TAZOB 3.375GM 100 ML IV SCH ×3 (00:47→16:27)
[2020-08-24] MEDS: HYDROmorphone HCL 2 MG/ML VL IV PRN ×6 (02:34→22:16)
[2020-08-24 05:00] VITALS: BP 150/80
[2020-08-24] MEDS: SODIUM CHLORIDE 0.9% 1,000 ML IV SCH ×3 (05:06→18:02)
[2020-08-24 05:41] LABS: Basophils # (auto) 0.1 10 ^3/uL (0-0.2); Eosinophils # (auto) 0.3 10 ^3/uL (0-0.8); Eosinophils % (auto) 2.8 % (0.0-7.0); Hematocrit 40.4 % (41.0-53.0); Hemoglobin 13.6 g/dL (13.5-17.5); Lymphocytes # (auto) 1.8 10 ^3/uL (0.4-5.4); Lymphocytes % (auto) 16.4 % (10.0-50.0); Mean Corpuscular Hgb Conc. 33.6 g/dL (32.0-36.0); Mean Corpuscular Volume 89.2 fL (80.0-100.0); Monocytes # (auto) 0.9 10 ^3/uL (0-1.3); Monocytes % (auto) 8.5 % (0.0-12.0); Neutrophils # (auto) 7.7 10 ^3/uL (1.6-8.6); Neutrophils % (auto) 71.3 % (37.0-80.0); Nucleated Red Blood Cells % 0.1 %; Red Blood Cells 4.53 10^6/uL (4.5-5.90); Red Cell Distribution Width 13.8 % (11.8-14.3); White Blood Cell 10.8 10^3/uL (4.4-10.8)
[2020-08-24] MEDS: CLINDAMYCIN 300MG IV 50 ML IV SCH ×2 (05:42→13:53)
[2020-08-24 05:45] LABS: Platelet Count (auto) 808 10^3/uL (140-450)
--- NOTE | 2020-08-24 05:50 | NUR ---
Critical platelet count of 808 received, hospitalist paged, new orders received and being carried out.
[2020-08-24 06:06] LABS: Calcium 8.2 mg/dL (8.5-10.1); Potassium 4.1 mmol/L (3.5-5.1)
[2020-08-24 06:09] LABS: BUN/Creatinine Ratio 14.1
--- NOTE | 2020-08-24 06:56 | NUR ---
PICC dressing noted to be lifting, dressing change preformed using sterile technique, pt tolerated well.
[2020-08-24] MEDS: LEVALBUTEROL HCL 1.25 MG/3 ML NEB NEB SCH ×3 (07:54→20:11)
[2020-08-24 09:00] VITALS: BP 138/82
--- NOTE | 2020-08-24 09:00 | NUR ---
Anand Rhodes CAT DRIVER at bedside stated will remove chest tube on Wednesday.
[2020-08-24] MEDS: FAMOTIDINE 20 MG TAB PO SCH (10:00)
[2020-08-24] MEDS: ENOXAPARIN SOD 40 MG/0.4 ML SYRINGE SC SCH ×2 (10:00→22:25)
[2020-08-24] MEDS: SODIUM CHLOR 0.9% PF (SALINE LOCK) 10ML VIAL/SYR IV SCH ×2 (10:08→21:46)
[2020-08-24] MEDS: LINEZOLID 600MG/300ML 300 ML IV SCH ×2 (10:09→21:47)
[2020-08-24 10:30] VITALS: BP 138/82
[2020-08-24 13:00] VITALS: BP 119/84
--- NOTE | 2020-08-24 15:48 | NUR ---
Patient does not have BM for 4 days, received new orders from Dr. Mcarthur , noted and carried and out.
[2020-08-24] MEDS ORDERED: LACTULOSE 20Gm/30ML SOLN PO PRN (16:00)
[2020-08-24 16:46] VITALS: BP 140/78
[2020-08-24] MEDS: Ensure HIGH Protein Chocolate 8oz Bottle PO SCH ×2 (18:02→21:47)
--- NOTE | 2020-08-24 18:47 | NUR ---
Per patient, he has BM today.
--- NOTE | 2020-08-24 18:49 | NUR ---
Minimum out put < 5 ml from chest tube in day shift.
--- NOTE | 2020-08-24 19:30 | NUR ---
Opening Shift Note Assumed care of patient, awake and alert. No S/S of distress/SOB or pain. Pain med just given earlier. Instructed on POC and to call for assist PRN, will continue to monitor for changes Q1hr and PRN.
[2020-08-24 22:00] VITALS: BP 125/75
[2020-08-25] MEDS: LEVALBUTEROL HCL 1.25 MG/3 ML NEB NEB SCH ×4 (00:13→18:23)
[2020-08-25] MEDS: PIPERACILLIN-TAZOB 3.375GM 100 ML IV SCH ×3 (01:12→16:24)
[2020-08-25] MEDS: SODIUM CHLORIDE 0.9% 1,000 ML IV SCH ×4 (01:12→21:00)
[2020-08-25] MEDS: HYDROmorphone HCL 2 MG/ML VL IV PRN ×6 (01:13→19:22)
[2020-08-25] MEDS: Ensure HIGH Protein Chocolate 8oz Bottle PO SCH ×4 (05:26→21:09)
[2020-08-25 05:38] VITALS: BP 143/78
--- NOTE | 2020-08-25 06:34 | NUR ---
chest tube output 10mls serousanguinous fluid
[2020-08-25 06:36] LABS: Basophils # (auto) 0.1 10 ^3/uL (0-0.2); White Blood Cell 11.3 10^3/uL (4.4-10.8)
[2020-08-25 06:40] LABS: Basophils % (auto) 0.6 % (0.0-2.0); Eosinophils # (auto) 0.4 10 ^3/uL (0-0.8); Eosinophils % (auto) 3.1 % (0.0-7.0); Hematocrit 40.3 % (41.0-53.0); Hemoglobin 13.4 g/dL (13.5-17.5); Lymphocytes # (auto) 1.8 10 ^3/uL (0.4-5.4); Lymphocytes % (auto) 15.7 % (10.0-50.0); Mean Corpuscular Hemoglobin 29.8 pg (28.0-32.0); Mean Corpuscular Hgb Conc. 33.3 g/dL (32.0-36.0); Mean Corpuscular Volume 89.3 fL (80.0-100.0); Monocytes # (auto) 0.6 10 ^3/uL (0-1.3); Monocytes % (auto) 5.3 % (0.0-12.0); Neutrophils # (auto) 8.5 10 ^3/uL (1.6-8.6); Neutrophils % (auto) 75.3 % (37.0-80.0); Red Blood Cells 4.51 10^6/uL (4.5-5.90); Red Cell Distribution Width 14.3 % (11.8-14.3)
[2020-08-25 06:53] LABS: Albumin 2.3 g/dL (3.4-5.0); Calcium 8.2 mg/dL (8.5-10.1); Potassium 3.8 mmol/L (3.5-5.1)
[2020-08-25 06:54] LABS: Platelet Count (auto) 819 10^3/uL (140-450)
[2020-08-25 06:56] LABS: BUN/Creatinine Ratio 17.4; Bilirubin, Total 0.3 mg/dL (0.2-1.0)
--- NOTE | 2020-08-25 07:05 | NUR ---
paged hospitalist for critical plt value of [phone], awaiting for callback
--- NOTE | 2020-08-25 07:15 | NUR ---
closing note endorsed care to day RN, no distress at this time
[2020-08-25 09:22] VITALS: BP 116/75
[2020-08-25] MEDS: FAMOTIDINE 20 MG TAB PO SCH (09:38)
[2020-08-25] MEDS: SODIUM CHLOR 0.9% PF (SALINE LOCK) 10ML VIAL/SYR IV SCH ×2 (09:38→21:09)
[2020-08-25] MEDS: LINEZOLID 600MG/300ML 300 ML IV SCH ×2 (09:38→21:09)
[2020-08-25] MEDS: ENOXAPARIN SOD 40 MG/0.4 ML SYRINGE SC SCH ×2 (09:38→21:09)
[2020-08-25 12:36] VITALS: BP 112/76
[2020-08-25] MEDS ORDERED: KETOROLAC TROMETH 30 MG/ML 1ML VIAL IV PRN (13:30)
--- NOTE | 2020-08-25 16:28 | NUR ---
Patient refused to placed tele box. Will try to convince later.
[2020-08-25 17:00] VITALS: BP 121/70
--- NOTE | 2020-08-25 19:30 | NUR ---
Opening Shift Note Assumed care of patient, awake and alert. Reported pain. will be given pain med. Instructed on POC and to call for assist PRN, will continue to monitor for changes Q1hr and PRN.
[2020-08-25 22:00] VITALS: BP 129/73
[2020-08-26] MEDS: LEVALBUTEROL HCL 1.25 MG/3 ML NEB NEB SCH ×4 (00:13→19:02)
[2020-08-26] MEDS: PIPERACILLIN-TAZOB 3.375GM 100 ML IV SCH ×2 (00:57→08:45)
[2020-08-26] MEDS: HYDROmorphone HCL 2 MG/ML VL IV PRN ×6 (01:09→21:30)
[2020-08-26] MEDS: SODIUM CHLORIDE 0.9% 1,000 ML IV SCH ×3 (04:19→17:24)
[2020-08-26 05:00] VITALS: BP 126/72
[2020-08-26] MEDS: Ensure HIGH Protein Chocolate 8oz Bottle PO SCH ×3 (05:06→22:00)
--- NOTE | 2020-08-26 06:30 | NUR ---
chest tube output=10mls serousanguinous fluid
[2020-08-26 07:09] LABS: Basophils # (auto) 0.1 10 ^3/uL (0-0.2); Eosinophils # (auto) 0.3 10 ^3/uL (0-0.8); Lymphocytes # (auto) 1.8 10 ^3/uL (0.4-5.4); Monocytes # (auto) 0.7 10 ^3/uL (0-1.3); Neutrophils % (auto) 68.8 % (37.0-80.0)
[2020-08-26 07:12] LABS: Basophils % (auto) 0.8 % (0.0-2.0); Eosinophils % (auto) 3.1 % (0.0-7.0); Hematocrit 38.8 % (41.0-53.0); Lymphocytes % (auto) 19.6 % (10.0-50.0); Mean Corpuscular Hemoglobin 30.1 pg (28.0-32.0); Mean Corpuscular Hgb Conc. 33.6 g/dL (32.0-36.0); Mean Corpuscular Volume 89.5 fL (80.0-100.0); Monocytes % (auto) 7.7 % (0.0-12.0); Neutrophils # (auto) 6.4 10 ^3/uL (1.6-8.6); Red Blood Cells 4.33 10^6/uL (4.5-5.90); Red Cell Distribution Width 14.1 % (11.8-14.3); White Blood Cell 9.3 10^3/uL (4.4-10.8)
[2020-08-26 07:16] LABS: Potassium 4.1 mmol/L (3.5-5.1)
[2020-08-26 07:22] LABS: BUN/Creatinine Ratio 20.5; Calcium 8.6 mg/dL (8.5-10.1)
--- NOTE | 2020-08-26 07:30 | NUR ---
closing note endorsed care to day RN, no distress noted at this time
[2020-08-26 07:36] LABS: Platelet Count (auto) 811 10^3/uL (140-450)
[2020-08-26] MEDS: FAMOTIDINE 20 MG TAB PO SCH (08:45)
[2020-08-26] MEDS: SODIUM CHLOR 0.9% PF (SALINE LOCK) 10ML VIAL/SYR IV SCH ×2 (08:46→21:32)
[2020-08-26 09:00] VITALS: BP 131/72
[2020-08-26] MEDS: ENOXAPARIN SOD 40 MG/0.4 ML SYRINGE SC SCH ×2 (10:53→21:30)
[2020-08-26] MEDS: LINEZOLID 600MG/300ML 300 ML IV SCH ×2 (10:55→21:30)
--- NOTE | 2020-08-26 12:22 | NUR ---
Nutrition Followup Notes Pt wt is 98.2 kg Pt was awake with MD when rounded this morning. Pt is with a Regular diet, appetite is improved, aeb 100% PO intake x2 meals per RN doc. Est Energy needs: 8930-3586 kcals (17-20 kcal/kgBW) Est Protein needs: 83-104 gms/day (0.8-1.0 gm/kgBW) Will continue to monitor and reassess prn. LABS: CA 8.2 L, ALB 2.3 L GI: Pt had 1 BM on 08/20 per RN doc BS: 20 low risk. Refer to Wound Assessment report for further details. PES: 1) Inadequate oral intake r/t pt with a fair appetite aeb 50% PO intake over 3 meals 2) Altered nutrition related lab values r/t current medical condition aeb hyperglycemia, hypocalcemia, hypoalbuminemia Comments Will continue to monitor PO status, skin status, pertinent labs and weight trends. Will f/u in 3-5 days 1) Continue to closely monitor pt PO intake to meet at least 75% of meals 2) If albumin continues trending down, consider Prostat 1 pkt BID 3) Continue current plan of care
[2020-08-26 13:00] VITALS: BP 123/70
[2020-08-26 17:00] VITALS: BP 134/79
--- NOTE | 2020-08-26 19:00 | NUR ---
Patient care endorsed to Adia kurtz. Patient laying comfortably in bed no acute distress or sob noted. Call light within reach.
--- NOTE | 2020-08-26 19:07 | NUR ---
AT BEDSIDE FOR ENID ANDERSON TX. WHEN AUSCULTATING BS, PT EXPRESSED PAIN OF PTS LEFT SIDE NEAR CHEST TUBE AT NIPPLE LEVEL. PT EXPLAINS A NUMBING TINGLING SENSATION IN THIS AREA. AREA PT POINTED TO IS NOT RED DOES APPEAR TO BE SLIGHTLY SWOLLEN. WILL COMMUNICATED PTS FINDINGS TO PTS NOC RN.
--- NOTE | 2020-08-26 19:30 | NUR ---
Opening Shift Note Assumed care of patient, awake and alert. No S/S of distress. Patient complained of 8/10 pain in his back and where his chest tube was inserted. Explained to patient that his next dose of Dilaudid won't be due till 2100. Chest tube bandage clean and intact. Chest tube drainage patent. Instructed on POC and to call for assist PRN, will continue to monitor for changes Q1hr and PRN.
[2020-08-26 22:00] VITALS: BP 143/78
[2020-08-27] MEDS: LEVALBUTEROL HCL 1.25 MG/3 ML NEB NEB SCH ×4 (00:19→18:51)
--- NOTE | 2020-08-27 00:22 | NUR ---
AT BEDSIDE FOR MED NEB TX. PT REQUESTING NURSE FOR PAIN MEDS. RN KAMERON COMMUNICATED ON PTS REQUEST.
[2020-08-27] MEDS: HYDROmorphone HCL 2 MG/ML VL IV PRN ×7 (00:33→23:01)
[2020-08-27] MEDS: SODIUM CHLORIDE 0.9% 1,000 ML IV SCH ×4 (00:34→19:59)
[2020-08-27 05:58] VITALS: BP 131/73
[2020-08-27] MEDS: Ensure HIGH Protein Chocolate 8oz Bottle PO SCH ×4 (06:15→21:34)
[2020-08-27] MEDS: SODIUM CHLOR 0.9% PF (SALINE LOCK) 10ML VIAL/SYR IV SCH ×2 (06:15→21:33)
[2020-08-27 07:15] LABS: Basophils # (auto) 0.1 10 ^3/uL (0-0.2); Eosinophils # (auto) 0.3 10 ^3/uL (0-0.8); Hemoglobin 13.4 g/dL (13.5-17.5)
[2020-08-27 07:18] LABS: Basophils % (auto) 0.9 % (0.0-2.0); Eosinophils % (auto) 2.6 % (0.0-7.0); Hematocrit 38.5 % (41.0-53.0); Lymphocytes # (auto) 2.4 10 ^3/uL (0.4-5.4); Lymphocytes % (auto) 23.8 % (10.0-50.0); Mean Corpuscular Hemoglobin 30.9 pg (28.0-32.0); Mean Corpuscular Hgb Conc. 34.6 g/dL (32.0-36.0); Mean Corpuscular Volume 89.2 fL (80.0-100.0); Monocytes # (auto) 0.7 10 ^3/uL (0-1.3); Monocytes % (auto) 6.8 % (0.0-12.0); Neutrophils # (auto) 6.6 10 ^3/uL (1.6-8.6); Neutrophils % (auto) 65.9 % (37.0-80.0); Red Blood Cells 4.32 10^6/uL (4.5-5.90); Red Cell Distribution Width 13.7 % (11.8-14.3); White Blood Cell 10.1 10^3/uL (4.4-10.8)
[2020-08-27 07:35] LABS: Platelet Count (auto) 849 10^3/uL (140-450)
[2020-08-27 07:55] LABS: Calcium 8.4 mg/dL (8.5-10.1); Potassium 4.6 mmol/L (3.5-5.1)
[2020-08-27 07:58] LABS: BUN/Creatinine Ratio 12.7
[2020-08-27 09:00] VITALS: BP 141/70
[2020-08-27] MEDS: LINEZOLID 600MG/300ML 300 ML IV SCH ×2 (10:13→21:34)
[2020-08-27] MEDS: FAMOTIDINE 20 MG TAB PO SCH (10:14)
[2020-08-27] MEDS: ENOXAPARIN SOD 40 MG/0.4 ML SYRINGE SC SCH ×2 (10:14→21:34)
[2020-08-27 13:00] VITALS: BP 139/75
--- NOTE | 2020-08-27 14:42 | NUR ---
Chest tube removed by Surgeon Dr. Bourgeois at bedside. Patient tolerated well. Occlusive dressing with sterile gauze and elastic tape applied. No acute distress or sob noted. New orders for cxr on 08/28 received. Will cont to monitor.
[2020-08-27 16:45] VITALS: BP 127/69
--- NOTE | 2020-08-27 19:10 | NUR ---
Opening Shift Note Assumed care of patient, awake and alert. No S/S of distress. Patient complained of 9/10 pain in his back where chest tube was removed, will medicate when due. Incision dressing dry and intact. Safety measures in place, bed in lowest locked position, bed rails raised x2, call light within reach. Instructed on POC and to call for assist PRN, will continue to monitor for changes Q1hr and PRN.
[2020-08-27 22:00] VITALS: BP 127/69
--- NOTE | 2020-08-28 00:36 | NUR ---
Pt called station to alert this RN that his dressing had come off. Upon entering room, gauze noted on bedside table, saturated in serosanguineous fluid. Pt states that elastic tape was not sticking good at all. This RN then cleaned and redressed the site with sterile gauze and a large tegaderm dressing. Pt tolerated well. Will continue to monitor drainage.
[2020-08-28] MEDS: LEVALBUTEROL HCL 1.25 MG/3 ML NEB NEB SCH ×4 (01:10→19:22)
[2020-08-28] MEDS: SODIUM CHLORIDE 0.9% 1,000 ML IV SCH ×4 (02:27→21:42)
[2020-08-28] MEDS: HYDROmorphone HCL 2 MG/ML VL IV PRN ×5 (04:51→21:43)
[2020-08-28 05:00] VITALS: BP 128/68
[2020-08-28 09:00] VITALS: BP 131/71
--- NOTE | 2020-08-28 10:30 | NUR ---
MD Iglesias aware of patient's status including abnormal labs. states potential dc tomorrow after cxr. Cont to monitor.
[2020-08-28] MEDS: LINEZOLID 600MG/300ML 300 ML IV SCH ×2 (10:35→21:41)
[2020-08-28] MEDS: ENOXAPARIN SOD 40 MG/0.4 ML SYRINGE SC SCH ×2 (10:35→21:42)
[2020-08-28] MEDS: FAMOTIDINE 20 MG TAB PO SCH (10:35)
[2020-08-28] MEDS: SODIUM CHLOR 0.9% PF (SALINE LOCK) 10ML VIAL/SYR IV SCH ×2 (10:35→21:41)
[2020-08-28] MEDS: Ensure HIGH Protein Chocolate 8oz Bottle PO SCH ×3 (12:00→21:43)
[2020-08-28 13:00] VITALS: BP 122/82
[2020-08-28 16:54] VITALS: BP 140/70
--- NOTE | 2020-08-28 19:02 | NUR ---
Patient care endorsed to Chanel kurtz. Patient sitting up in bed no acute distress or sob noted. Call light within reach. Dressing to left chest c/d/i. Addendum: 08/28/20 at 1904 by Kasie Wright RN Patient care endorsed to Radha kurtz
[2020-08-28 22:00] VITALS: BP 125/80
[2020-08-29] MEDS: LEVALBUTEROL HCL 1.25 MG/3 ML NEB NEB SCH ×4 (00:02→14:14)
--- NOTE | 2020-08-29 00:09 | NUR ---
AT BEDSIDE FOR MED MONICA DANG.
[2020-08-29 05:00] VITALS: BP 144/72
[2020-08-29] MEDS: SODIUM CHLORIDE 0.9% 1,000 ML IV SCH ×2 (05:22→09:12)
--- NOTE | 2020-08-29 05:33 | NUR ---
No Ensure available. Will endorse administration to day shift.
[2020-08-29] MEDS: HYDROmorphone HCL 2 MG/ML VL IV PRN ×2 (06:51→09:53)
[2020-08-29 08:10] VITALS: BP 158/96
[2020-08-29] MEDS: SODIUM CHLOR 0.9% PF (SALINE LOCK) 10ML VIAL/SYR IV SCH (09:00)
[2020-08-29] MEDS: LINEZOLID 600MG/300ML 300 ML IV SCH (09:01)
[2020-08-29] MEDS: FAMOTIDINE 20 MG TAB PO SCH (09:01)
[2020-08-29] MEDS: ENOXAPARIN SOD 40 MG/0.4 ML SYRINGE SC SCH (09:02)
--- NOTE | 2020-08-29 11:05 | NUR ---
PATITO PICC LINE DC'D. NO COMPLICATIONS, PT TOLERATED PROCEDURE WELL. TELE BOX REMOVED AND RETURNED TO TELE DEPT.
[2020-08-29] MEDS ORDERED: LINE1TAB6 PO (11:19)
[2020-08-29] MEDS: Ensure HIGH Protein Chocolate 8oz Bottle PO SCH (12:12)
--- NOTE | 2020-08-29 12:50 | NUR ---
ADVISED BY RUNNER ON PT SAID HE WILL GO OUT FOR A WALK. 15MIN AGO PT'S ROOM IS FREE OF BELONGINGS AT THIS TIME. PT APPEARS TO HAVE HAD ELOPED PER NURSES NOTE TO ADVISE AUTHORITIES UPON DC. PT ARRIVED TO HOSPITAL UNDER DEPUTY SUPERVISION. BASTING MARKER DISPATCH NOTIFIED OF PT'S DC ORDER AND PT'S ELOPEMENT FROM ACUTE CARE FACILITY. SPOKE TO REP (REID).
== END 2020-08-29 12:40 | disposition home or self-care (01) | DRG 720 ==
LOC: ER 06:11 → TELE 06:12 → ICU WEST 16:33 → TELE-WESTW 08-22 11:53
PROVIDERS: ADMIT Nurse Practitioner Acute Care; ATTEND Internal Medicine Pulmonary Disease
PROC: 02HV33Z Insertion of Infusion Device into Superior Vena Cava, Percutaneous Approach (ICD-10-PCS; 2020-08-19)
PROC: 02H633Z Insertion of Infusion Device into Right Atrium, Percutaneous Approach (ICD-10-PCS; 2020-08-19)
PROC: 0B9B8ZZ Drainage of Left Lower Lobe Bronchus, Via Natural or Artificial Opening Endoscopic (ICD-10-PCS; principal; 2020-08-20 11:15)
PROC: 0BNL0ZZ Release Left Lung, Open Approach (ICD-10-PCS; 2020-08-21)
PROC: 0BJ Respiratory System, Inspection (ICD-10-PCS; 2020-08-21)
PROC: 0B9L00Z Drainage of Left Lung with Drainage Device, Open Approach (ICD-10-PCS; 2020-08-21)
DX: A41.02 Sepsis due to Methicillin resistant Staphylococcus aureus (principal); T79.7XXA Traumatic subcutaneous emphysema, initial encounter; J96.01 Acute respiratory failure with hypoxia; J18.9 Pneumonia, unspecified organism; J90 Pleural effusion, not elsewhere classified; E88.09 Other disorders of plasma-protein metabolism, not elsewhere classified; E87.1 Hypo-osmolality and hyponatremia; N18.9 Chronic kidney disease, unspecified; F15.90 Other stimulant use, unspecified, uncomplicated; F17.210 Nicotine dependence, cigarettes, uncomplicated; F19.10 Other psychoactive substance abuse, uncomplicated; Z20.828 Contact with and (suspected) exposure to other viral communicable diseases; R65.20 Severe sepsis without septic shock; N17.0 Acute kidney failure with tubular necrosis; E44.0 Moderate protein-calorie malnutrition; F41.9 Anxiety disorder, unspecified; Z79.899 Other long term (current) drug therapy; Z68.28 Body mass index [BMI] 28.0-28.9, adult
CPT/HCPCS: 36415; 36569; 36600; 71045; 71250; 71260; 80048; 80053; 80202; 80307; 81001; 82805; 83605; 83880; 84484; 85007; 85025; 85027; 85610; 85730; 86850; 86900; 86901; 87040; 87070; 87075; 87077; 87081; 87186; 87205; 93005; 93306; 94640; 96365; 96366; 96367; 96368; 96375; G0378; J0171; J0696; J1100; J1885; J2250; J2405; J2543; J2704; J3490